=== PATIENT | male | born 1940 | race African-American/Black ===

== ENCOUNTER 2016-08-08 09:44 | Inpatient (IN) | payer MEDICARE, MEDICAID ==
[~2016-08-08] VITALS: Ht 180.3 cm; Wt 91.6 kg
[2016-08-08 10:47] LABS: HEMATOCRIT. 35.1 % (42.0-52.0); HEMOGLOBIN. 11.3 g/dL (14.0-18.0); MEAN CORPUSCULAR HEMOGLOBIN 26.9 pg (28.0-32.0); MEAN CORPUSCULAR VOLUME 83.2 fL (80.0-94.0); MEAN PLATELET VOLUME 7.2 fl (7.4-10.4); PLATELET 216 x1000/uL (130-400); RED BLOOD CELL COUNT 4.22 mill/uL (4.7-6.1); RED CELL DISTRIBUTION WIDTH 15.5 % (11.6-14.6)
[2016-08-08 10:57] LABS: PROTHROMBIN TIME 10.7 sec
[2016-08-08 11:01] LABS: CARBON DIOXIDE 29 mEq/L (21-32); CHLORIDE 104 mEq/L (98-107); ETHANOL BLOOD < 10 mg/dL
[2016-08-08 11:06] LABS: TROPONIN I < 0.02 ng/mL (0.00-0.04)
[2016-08-08 11:44] LABS: PLATELET ESTIMATE NORMAL
[2016-08-08] MEDS ORDERED: FUROSEMIDE 40MG/4ML VIAL IV ONE (15:45)
[2016-08-08] MEDS ORDERED: ASPIRIN 81MG TABLET PO ONE (15:45)
[2016-08-08] MEDS ORDERED: ONDANSETRON HCL 4MG/2ML VIAL IV PRN (18:15)
[2016-08-08] MEDS ORDERED: DIPHENHYDRAMINE 50MG/ML VIAL IV PRN (18:15)
[2016-08-08] MEDS ORDERED: ACETAMINOPHEN 325MG TABLET PO PRN (18:15)
[2016-08-08] MEDS ORDERED: MAGNESIUM/ALUMINUM HYDROXIDE/SIMETHICONE 30ML UDC PO PRN (18:15)
[2016-08-08] MEDS ORDERED: CLONIDINE 0.1MG TABLET PO PRN (18:15)
[2016-08-08] MEDS ORDERED: NITROGLYCERIN 0.4MG TABLET SL SL PRN (18:15)
[2016-08-08] MEDS ORDERED: LORAZEPAM 2MG/ML CPJ IV PRN (18:15)
[2016-08-08] MEDS ORDERED: DOCUSATE SODIUM 100MG CAPSULE PO PRN (18:15)
[2016-08-08] MEDS ORDERED: ENOXAPARIN 40MG/0.4ML SYR SUBCUT SCH (18:15)
[2016-08-08] MEDS ORDERED: IPRATROPIUM/ALBUTEROL 0.5-3(2.5)MG/3ML NEB INH PRN (18:15)
[2016-08-08] MEDS ORDERED: GUAIFENESIN 200MG/10ML SUGAR FREE UDC PO PRN (18:15)
[2016-08-08 19:13] LABS: FOLIC ACID (FOLATE) SERUM 9.4 ng/mL (>5.38)
[2016-08-08 20:00] VITALS: BP 167/89
[2016-08-08] MEDS ORDERED: MORPHINE SULFATE 2 MG/ML CPJ (NOT FOR IM USE) IV PRN (20:38)
[2016-08-08] MEDS ORDERED: TRAMADOL 50MG TABLET PO PRN (20:40)
[2016-08-08 20:58] VITALS: BP 167/89
[2016-08-08] MEDS ORDERED: ZOLPIDEM TARTRATE 5MG TABLET PO PRN (21:00)
[2016-08-08] MEDS ORDERED: ENOXAPARIN 60MG/0.6ML SYR SUBCUT SCH (21:00)
[2016-08-08] MEDS ORDERED: NA PHOS,M-B/NA PHOS,DI-BA ENEMA 118ML PR PRN (21:00)
[2016-08-08] MEDS ORDERED: DIPH25CA83 PO (21:29)
[2016-08-08] MEDS ORDERED: CLON0.1T PO (21:29)
[2016-08-08] MEDS: SPIRONOLACTONE 25MG TABLET PO SCH (22:11)
[2016-08-08] MEDS: ENOXAPARIN 30MG/0.3ML SYR SUBCUT SCH (22:11)
[2016-08-08 23:10] LABS: *AMPHETAMINES SCREEN URINE NEGATIVE (NEGATIVE); *BARBITURATES SCREEN URINE NEGATIVE (NEGATIVE); *BENZODIAZEPINES SCREEN URINE NEGATIVE (NEGATIVE); *COCAINE SCREEN URINE NEGATIVE (NEGATIVE); CANNABINOID URINE SCREEN NEGATIVE (NEGATIVE); METHADONE URINE SCREEN PRESUMTIVE POSITIVE (NEGATIVE); OPIATES URINE SCREEN NEGATIVE (NEGATIVE); PHENCYCLIDINE URINE SCREEN NEGATIVE (NEGATIVE)
[2016-08-08] MEDS ORDERED: METH5TAB2 PO (23:25)
[2016-08-08 23:31] LABS: CREATINE KINASE 103 IU/L (39-308); CREATINE KINASE MB FRACTION 2.7 ng/mL (0.5-3.6); TROPONIN I < 0.02 ng/mL (0.00-0.04)
[2016-08-09] VITALS: BP 161/90
[2016-08-09] MEDS ORDERED: LEVOFLOXACIN 500MG PREMIX 100 ML IV SCH
[2016-08-09] MEDS: IPRATROPIUM/ALBUTEROL 0.5-3(2.5)MG/3ML NEB HHN SCH ×3 (00:19→21:38)
[2016-08-09 04:00] VITALS: BP 138/78
[2016-08-09 07:37] LABS: CREATINE KINASE 77 IU/L (39-308); CREATINE KINASE MB FRACTION 1.8 ng/mL (0.5-3.6); TROPONIN I < 0.02 ng/mL (0.00-0.04)
[2016-08-09 07:39] VITALS: BP 151/81
[2016-08-09] MEDS: SUCRALFATE 1 G/10 ML UDC PO SCH ×4 (07:59→20:56)
[2016-08-09] MEDS: PANTOPRAZOLE SODIUM 40 MG/VIAL IV SCH (08:36)
[2016-08-09] MEDS: ZINC SULFATE 220 MG ( 50 ) CAPSULE PO SCH (08:36)
[2016-08-09] MEDS: ASPIRIN 325MG EC TABLET PO SCH (08:36)
[2016-08-09] MEDS: SPIRONOLACTONE 25MG TABLET PO SCH ×2 (08:36→20:55)
[2016-08-09] MEDS: ENOXAPARIN 30MG/0.3ML SYR SUBCUT SCH ×2 (08:37→20:56)
[2016-08-09] MEDS: GUAIFENESIN/DM 600MG/30MG ER TAB 12HR PO SCH ×2 (08:38→20:55)
[2016-08-09 12:00] VITALS: BP 125/72
[2016-08-09] MEDS ORDERED: REGADENOSON 0.4 MG/5 ML IV ONE (12:45)
[2016-08-09 16:50] VITALS: BP 135/96
[2016-08-09 20:00] VITALS: BP 149/91
[2016-08-09] MEDS: AMLODIPINE 2.5MG TABLET PO SCH (20:55)
[2016-08-10] VITALS: BP 140/89
[2016-08-10] MEDS: IPRATROPIUM/ALBUTEROL 0.5-3(2.5)MG/3ML NEB HHN SCH ×6 (00:11→20:30)
[2016-08-10] MEDS: LEVOFLOXACIN 500MG PREMIX 100 ML IV SCH (01:40)
[2016-08-10 04:00] VITALS: BP 138/78
[2016-08-10 08:00] VITALS: BP 159/97
[2016-08-10] MEDS: SPIRONOLACTONE 25MG TABLET PO SCH ×2 (08:23→20:57)
[2016-08-10] MEDS: AMLODIPINE 2.5MG TABLET PO SCH (08:23)
[2016-08-10] MEDS: ZINC SULFATE 220 MG ( 50 ) CAPSULE PO SCH (08:23)
[2016-08-10] MEDS: ASPIRIN 325MG EC TABLET PO SCH (08:23)
[2016-08-10] MEDS: PANTOPRAZOLE SODIUM 40 MG/VIAL IV SCH (08:23)
[2016-08-10] MEDS: SUCRALFATE 1 G/10 ML UDC PO SCH ×4 (08:23→20:57)
[2016-08-10] MEDS: ENOXAPARIN 30MG/0.3ML SYR SUBCUT SCH ×2 (08:24→20:58)
[2016-08-10] MEDS: GUAIFENESIN/DM 600MG/30MG ER TAB 12HR PO SCH ×2 (08:25→20:57)
[2016-08-10] MEDS ORDERED: REGADENOSON 0.4 MG/5 ML IV ONE (09:29)
[2016-08-10 12:00] VITALS: BP 163/88
[2016-08-10 16:00] VITALS: BP 134/79
[2016-08-10 20:00] VITALS: BP 130/77
[2016-08-10] MEDS: AMLODIPINE 5MG TABLET PO SCH (20:58)
[2016-08-10] MEDS ORDERED: FAMOTIDINE 20MG/2ML VIAL IV SCH (21:00)
[2016-08-11] VITALS: BP 143/82
[2016-08-11] MEDS: IPRATROPIUM/ALBUTEROL 0.5-3(2.5)MG/3ML NEB HHN SCH ×4 (00:30→12:00)
[2016-08-11] MEDS: LEVOFLOXACIN 500MG PREMIX 100 ML IV SCH (00:50)
[2016-08-11 04:00] VITALS: BP 135/80
[2016-08-11 08:00] VITALS: BP 139/80
[2016-08-11] MEDS: ASPIRIN 325MG EC TABLET PO SCH (08:41)
[2016-08-11] MEDS: SUCRALFATE 1 G/10 ML UDC PO SCH (08:41)
[2016-08-11] MEDS: GUAIFENESIN/DM 600MG/30MG ER TAB 12HR PO SCH (08:42)
[2016-08-11] MEDS: ENOXAPARIN 30MG/0.3ML SYR SUBCUT SCH (08:42)
[2016-08-11] MEDS: SPIRONOLACTONE 25MG TABLET PO SCH (08:42)
[2016-08-11] MEDS: AMLODIPINE 5MG TABLET PO SCH (08:42)
[2016-08-11] MEDS: ZINC SULFATE 220 MG ( 50 ) CAPSULE PO SCH (08:53)
[2016-08-11] MEDS ORDERED: FAMOTIDINE 20MG TABLET PO SCH ×2 (09:00)
[2016-08-11 11:27] VITALS: BP 130/80
== END 2016-08-11 13:00 | disposition home or self-care (01) | DRG 291 ==
LOC: ER 10:36 → 7WST 16:05 → SUPCPDRO 17:02
PROVIDERS: ADMIT Internal Medicine; ATTEND Internal Medicine
DX: I11.0 Hypertensive heart disease with heart failure (principal); N17.0 Acute kidney failure with tubular necrosis; E44.0 Moderate protein-calorie malnutrition; J44.1 Chronic obstructive pulmonary disease with (acute) exacerbation; I50.33 Acute on chronic diastolic (congestive) heart failure; F41.9 Anxiety disorder, unspecified; F10.10 Alcohol abuse, uncomplicated; K59.00 Constipation, unspecified; D63.8 Anemia in other chronic diseases classified elsewhere; M19.90 Unspecified osteoarthritis, unspecified site; F17.210 Nicotine dependence, cigarettes, uncomplicated; Z79.82 Long term (current) use of aspirin; Z68.28 Body mass index [BMI] 28.0-28.9, adult; Z79.899 Other long term (current) drug therapy; Z71.6 Tobacco abuse counseling
CPT/HCPCS: 36415; 71010; 74176; 78452; 80053; 80061; 80305; 82550; 82553; 82607; 82746; 83036; 83540; 83550; 83690; 83735; 83880; 84443; 84484; 85025; 85379; 85610; 93005; 93017; 93306; 93970; 94640; 96374; 99285; A9500; C9113; G0482; J1650; J1940; J1956; J2785; J7040; J7620